=== PATIENT | female | born 1980 | race Hispanic/Latino ===

== ENCOUNTER → 2018-12-15 | Outpatient (CLI) | payer OTHER | END | disposition home or self-care (01) | LOC: SLP 20:23 | PROVIDERS: ATTEND Internal Medicine Cardiovascular Disease | DX: G47.33 Obstructive sleep apnea (adult) (pediatric) (principal) | CPT/HCPCS: 95810 ==

== ENCOUNTER → 2018-12-22 | Outpatient (CLI) | payer OTHER ==
--- NOTE | 2018-12-23 05:23 | NUR ---
PATIENT WOKE UP THIS MORNING POST SLEEP STUDY CPAP TITRATION COMPLAINING OF NASAL CONGESTION AND MILD NAUSEA DUE TO ABDOMINAL AIR TRAPPING. PATIENT STATES SHE FEELS WELL BUT JUST A BIT BLOATED ABDOMINAL AIR. Addendum: 12/23/18 at 0526 by SANDRITA VELASQUEZ RTSLT Amended: Links added.
== END | disposition home or self-care (01) ==
LOC: SLP 20:40 → EDUNIT# 12-28 20:30
PROVIDERS: ATTEND Internal Medicine Cardiovascular Disease
DX: G47.33 Obstructive sleep apnea (adult) (pediatric) (principal)
CPT/HCPCS: 95811

== ENCOUNTER → 2024-08-02 | Outpatient (CLI) | payer OTHER ==
--- NOTE | 2024-08-02 14:05 | HMCIMG ---
CT calcium scoring Clinical Information: CT HEART SAVER SCREENING Comparison: None CT Dose Index (CTDI): 13.30 mGy Dose Length Product (DLP): 186.18 total mGy-cm Findings: Calcium score 0. No identifiable calcification. The CT scan is not a complete chest CT. Covered portion is reviewed for incidental findings. No incidental findings seen. IMPRESSION: Calcium score as above. Calcium score reference stable: 0: No identifiable calcification 1- 10: Minimal identifiable calcification 11-100: Mild calcification 101- 400: Moderate calcification 401 and above: Significant calcification Automated exposure control and adequate statistical iterative reconstructions were utilized as dose reduction techniques.
== END | disposition home or self-care (01) ==
LOC: RAH 12:03
PROVIDERS: ATTEND Internal Medicine Cardiovascular Disease
DX: Z13.6 Encounter for screening for cardiovascular disorders (principal)
CPT/HCPCS: 75571